=== PATIENT | male | born 1980 | race Caucasian/White ===

== ENCOUNTER 2022-05-01 08:07 | Day surgery (SDC) | payer OTHER ==
[2022-04-24 15:21] VITALS: BMI 23.7
[2022-05-01] MEDS ORDERED: BUPIVACAINE HCL/EPINEPHRINE/PF 30 ML VIAL IJ ONE (08:23)
[2022-05-01] MEDS ORDERED: MIDAZOLAM HCL 2 MG/2 ML SINGLE DOSE VIAL ONE (10:01)
[2022-05-01] MEDS ORDERED: PROPOFOL 20 ML ONE (10:01)
[2022-05-01] MEDS ORDERED: BUPIVACAINE 0.25% /EPI 1:200,000 10 ML VIAL NR ONE (10:20)
[2022-05-01] MEDS ORDERED: ONDANSETRON 4 MG/2 ML VIAL IVPUSH PRN (10:56)
[2022-05-01] MEDS ORDERED: oxyCODONE HCL 5 MG TABLET PO PRN (10:56)
[2022-05-01] MEDS ORDERED: LACTATED RINGERS SOLUTION 1,000 ML IV SCH (11:00)
[2022-05-01 12:29] VITALS: RESP 18; TEMP 98.7
[2022-05-01 12:33] VITALS: BP 122/83; PULSE 61
== END 2022-05-01 12:15 | disposition home or self-care (01) ==
LOC: FASU 08:07
PROVIDERS: ATTEND Orthopaedic Surgery
PROC: 0SQD4ZZ Repair Left Knee Joint, Percutaneous Endoscopic Approach (ICD-10-PCS; principal; 2022-05-01 10:20)
DX: S83.212A Bucket-handle tear of medial meniscus, current injury, left knee, initial encounter (principal); X58.XXXA Exposure to other specified factors, initial encounter; Y93.9 Activity, unspecified; Y92.9 Unspecified place or not applicable
CPT/HCPCS: 94760